=== PATIENT | female | born 1950 | race Caucasian/White ===

== ENCOUNTER → 2016-12-21 | Outpatient (CLI) | payer MEDICARE ==
[~2016-12-21] MED LIST: ALIG4CAP PO; BREO1INH INH; CALC1TAB21 PO; CLAR10CA3 PO; CRES10TA32 PO; E-Z-GAS II EFFERVESCENT PACKET (SODIUM BICARB./CITRIC ACID/SIMETHICONE) As Ordered ONE; E-Z-HD 98% w/w 340GM SUSP BTL As Ordered ONE; E-Z-PAQUE 96% w/w SUSP 176GM BTL As Ordered ONE; LEVO50TA45 PO; OMEGCAP9 PO; OMEP20CA3 PO; PREV1CAP PO; PROAAER10 INH; SING10TA32 PO; VITA200038 PO; VITA400C97 PO; VITA500C24 PO
--- NOTE | 2016-12-21 19:25 | REP ---
Esophagram The procedure was performed under the direct supervision of Dr. Chun. The images were reviewed with Dr. Chun. A single view PA chest x-ray is submitted as a psych nurse film. The superior mediastinal structures are midline. The heart size is within normal limits. The lungs are clear. Liquid barium and gas producing granules were given in the erect position as well as liquid barium in the prone oblique positions in order to perform a double contrast esophagram examination. The oral and pharyngeal stages of deglutition are unremarkable. Esophageal transport is prompt and efficient and there is no esophagitis, stricture or mucosal ring. There is a sliding type hiatal hernia present. There is gastroesophageal reflux demonstrated to above the level of the roberto. Impression: There is a sliding type hiatal hernia present. There is gastroesophageal reflux demonstrated to above the level of the roberto. 44 seconds of fluoro time was utilized for this procedure. Reviewed by KEVIN Uribe 12/21/2016 05:24 PSigned by Sachin Chun MD 12/21/2016 07:15 P
== END ==
LOC: M RAD 10:48
PROVIDERS: ATTEND Internal Medicine Gastroenterology
DX: K44.9 Diaphragmatic hernia without obstruction or gangrene (principal); K21.9 Gastro-esophageal reflux disease without esophagitis

== ENCOUNTER 2017-08-23 05:48 | Day surgery (SDC) | payer MEDICARE ==
[2017-08-23] MEDS ORDERED: LIDOCAINE 1% MDV 20ML VIAL SQ (06:00)
[2017-08-23] MEDS: LR 1,000 ML IV (06:45)
[2017-08-23] MEDS: dexameTHASONE 4 MG/ML 1ML VIAL (J1100) As Ordered (07:36)
[2017-08-23] MEDS: LIDOCAINE 2% MDV 20 ML VIAL As Ordered (07:36)
[2017-08-23] MEDS: BUPIVACAINE HCL 0.5% 30 ML VIAL As Ordered (07:36)
[2017-08-23] MEDS ORDERED: PROPOFOL 200 MG/20 ML VIAL As Ordered (07:38)
[2017-08-23] MEDS ORDERED: fentaNYL 100 MCG/2 ML INJECTION (J3010) As Ordered (07:38)
[2017-08-23] MEDS ORDERED: ONDANSETRON 4MG/2ML VIAL (J2405) As Ordered (07:38)
[2017-08-23] MEDS ORDERED: LIDOCAINE 2% INJ 100 MG/5 ML SDV (FOR ANES.) As Ordered (07:38)
[2017-08-23] MEDS ORDERED: MIDAZOLAM INJ 2 MG/2 ML VIAL (J2250) As Ordered (07:38)
[2017-08-23] MEDS: BACITRACIN PWD 50,000 UNITS VIAL As Ordered (07:41)
[2017-08-23] MEDS: NEOSPORIN GU IRRIG 20 ML VIAL As Ordered (07:41)
[2017-08-23] MEDS ORDERED: ePHEDrine SULFATE 25 MG/5 ML(5MG/ML) SYRINGE As Ordered (07:55)
== END 2017-08-23 09:40 | disposition home or self-care (01) ==
LOC: M SDC 05:48
DX: G57.62 Lesion of plantar nerve, left lower limb (principal); E03.9 Hypothyroidism, unspecified; K21.9 Gastro-esophageal reflux disease without esophagitis; J45.909 Unspecified asthma, uncomplicated; Z79.899 Other long term (current) drug therapy; Z88.0 Allergy status to penicillin; Z88.2 Allergy status to sulfonamides
CPT/HCPCS: 28080

== ENCOUNTER 2019-05-21 08:55 | Day surgery (SDC) | payer MEDICARE ==
[~2019-05-21] VITALS: Ht 160 cm; Wt 56.7 kg
[~2019-05-21 08:55] MED LIST changes: +CALC600T66 PO; +CRES10TA PO; -CRES10TA32 PO; -E-Z-GAS II EFFERVESCENT PACKET (SODIUM BICARB./CITRIC ACID/SIMETHICONE) As Ordered ONE; -E-Z-HD 98% w/w 340GM SUSP BTL As Ordered ONE; -E-Z-PAQUE 96% w/w SUSP 176GM BTL As Ordered ONE; +HAIR1CHW PO; +NS 1,000 ML IV ONE; +OMEP1CAP73 PO; -OMEP20CA3 PO; +PROBCAP14 PO; +PROBCAP4 PO; +TUMETAB PO; +VITA500079 PO
[2019-05-21] MEDS ORDERED: propofoL 200 MG/20 ML VIAL As Ordered ONE (09:22)
[2019-05-21] MEDS ORDERED: LIDOCAINE 2% INJ 100 MG/5 ML SDV (FOR ANES.) As Ordered ONE (10:10)
--- NOTE | 2019-05-21 11:17 | ROOR ---
Patient Name: Elsa Espinoza Procedure Date: 05/21/2019 10:58 AM Date of : 1950 Age: 68 Room: [facility] Gender: Female Note Status: Finalized Procedure: Colonoscopy Indications: Abnormal CT of the GI tract Providers: Husam OLIVER MD Referring MD: Gregoria YODER MD Requesting Provider: Medicines: Monitored Anesthesia Care Complications: No immediate complications. Procedure: Pre-Anesthesia Assessment: - The heart rate, respiratory rate, oxygen saturations, blood pressure, adequacy of pulmonary ventilation, and response to care were monitored throughout the procedure. The Colonoscope was introduced through the anus and advanced to 5 cm into the ileum. The colonoscopy was performed without difficulty. The patient tolerated the procedure well. The quality of the bowel preparation was good. Findings: The perianal and digital rectal examinations were normal. Multiple small and large-mouthed diverticula were found in the sigmoid colon. There was evidence of diverticular spasm. A diminutive polyp was found in the hepatic flexure. The polyp was sessile. The polyp was removed with a jumbo cold forceps. Resection and retrieval were complete. Small Internal Hemorrhoids. The exam was otherwise without abnormality on direct and retroflexion views. Impression: - Moderate diverticulosis in the sigmoid colon. There was evidence of diverticular spasm. - One diminutive polyp at the hepatic flexure, removed with a jumbo cold forceps. Resected and retrieved. - Small Internal Hemorrhoids. - The examination was otherwise normal on direct and retroflexion views. Recommendation: - Repeat colonoscopy in 5 years for surveillance. - Use fiber, for example Citrucel, Fibercon, Konsyl or Metamucil. - Return to referring physician as previously scheduled. Husam Oliver MD Husam OLIVER MD 05/21/2019 11:17:04 AM Electronically signed by Husam OLIVER MD Number of Addenda: 0 Note Initiated On: 05/21/2019 10:58 AM Estimated Blood Loss: Estimated blood loss: none.
[2019-05-21 11:40] VITALS: BP 142/61
== END 2019-05-21 11:50 | disposition home or self-care (01) ==
LOC: M OPP 08:55
PROVIDERS: ATTEND Internal Medicine Gastroenterology
DX: D12.3 Benign neoplasm of transverse colon (principal); K57.30 Diverticulosis of large intestine without perforation or abscess without bleeding; K64.8 Other hemorrhoids; Z79.899 Other long term (current) drug therapy; Z88.0 Allergy status to penicillin; Z88.1 Allergy status to other antibiotic agents; Z88.2 Allergy status to sulfonamides

== ENCOUNTER → 2021-06-02 | Outpatient (CLI) | payer MEDICARE ==
[~2021-06-02] MED LIST changes: -NS 1,000 ML IV ONE
[2021-06-02 09:21] LABS: BLOOD UREA NITROGEN 17 MG/DL (7-18); CREATININE FOR GFR 0.91 MG/DL (0.55-1.30); GLOMERULAR FILTRATION RATE > 60.0 (>39)
== END ==
LOC: M LAB 08:31
PROVIDERS: ATTEND Ophthalmology
DX: C69.32 Malignant neoplasm of left choroid (principal)

== ENCOUNTER → 2021-06-06 | Outpatient (CLI) | payer MEDICARE ==
[~2021-06-06] MED LIST changes: +PROHANCE 279.3MG/ML 15ML VIAL As Ordered ONE
== END ==
LOC: M RAD 12:56
PROVIDERS: ATTEND Ophthalmology
DX: C69.32 Malignant neoplasm of left choroid (principal)
CPT/HCPCS: 74183; A9576

== ENCOUNTER → 2021-11-30 | Outpatient (CLI) | payer MEDICARE ==
[~2021-11-30] MED LIST changes: -PROHANCE 279.3MG/ML 15ML VIAL As Ordered ONE
[2021-11-30 09:24] LABS: BLOOD UREA NITROGEN 14 MG/DL (7-18); CREATININE FOR GFR 0.95 MG/DL (0.55-1.30); GLOMERULAR FILTRATION RATE > 60.0 (>39)
== END ==
LOC: M LAB 08:16
PROVIDERS: ATTEND Ophthalmology
DX: C69.32 Malignant neoplasm of left choroid (principal)

== ENCOUNTER → 2021-12-06 | Outpatient (CLI) | payer MEDICARE ==
[~2021-12-06] MED LIST changes: +PROHANCE 279.3MG/ML 15ML VIAL ONE
== END ==
LOC: M PLAIMG 07:28
PROVIDERS: ATTEND Ophthalmology
DX: C69.32 Malignant neoplasm of left choroid (principal)
CPT/HCPCS: 74183; A9576

== ENCOUNTER → 2022-05-16 | Outpatient (CLI) | payer MEDICARE ==
[~2022-05-16] MED LIST changes: +EZET10TA21 PO; +GABA-282 PO; +MONT-5 PO; -PROHANCE 279.3MG/ML 15ML VIAL ONE; +REPA140I2 SC; -SING10TA32 PO
== END ==
LOC: M LABSMTC 11:18
PROVIDERS: ATTEND Anesthesiology
DX: Z01.818 Encounter for other preprocedural examination (principal)

== ENCOUNTER 2022-05-21 09:46 | Day surgery (SDC) | payer MEDICARE ==
[~2022-05-21] VITALS: Ht 160 cm; Wt 62.1 kg
[~2022-05-21 09:46] MED LIST changes: +BSS IRRIG/VANCO(10MG)/TOBRA(5MG)/EPINEPH(1:1000-0.5CC)500ML BAG-ORONLY IR ONE; +CYCLOPENTOLATE 1% OPHTH SOLN 2ML BTL OS SCH; +LIDOCAINE 1% SDV 5ML VIAL As Ordered ONE; +LIDOCAINE 3.5 % 1ML OPHTH TOPICAL GEL OU ONE; +OFLOXACIN 0.3 % (OCUFLOX) OPTH SOL 5ML OS ONE; +PHENYLEPHRINE 10% OPHTH SOL 5ML OS PRN; +PHENYLEPHRINE 2.5% OPHTH SOL 2ML OS SCH; +TROPICAMIDE 1% OPHTH SOLN 15ML OS SCH
[2022-05-21] MEDS ORDERED: fentaNYL 100 MCG/2 ML INJECTION As Ordered ONE (11:28)
[2022-05-21] MEDS ORDERED: MIDAZOLAM INJ 2MG/2ML VIAL As Ordered ONE (11:28)
[2022-05-21 11:36] VITALS: BP 138/78
== END 2022-05-21 11:55 | disposition home or self-care (01) ==
LOC: M SDC 09:46
PROVIDERS: ATTEND Ophthalmology
DX: H25.12 Age-related nuclear cataract, left eye (principal); E78.5 Hyperlipidemia, unspecified; E03.9 Hypothyroidism, unspecified; J45.909 Unspecified asthma, uncomplicated; Z90.89 Acquired absence of other organs; Z90.710 Acquired absence of both cervix and uterus; Z88.1 Allergy status to other antibiotic agents; Z88.0 Allergy status to penicillin; Z88.2 Allergy status to sulfonamides; Z79.899 Other long term (current) drug therapy; Z92.3 Personal history of irradiation
CPT/HCPCS: 66984; J2250; J3010; V2632

== ENCOUNTER → 2022-06-01 | Outpatient (CLI) | payer MEDICARE ==
[~2022-06-01] MED LIST changes: -BSS IRRIG/VANCO(10MG)/TOBRA(5MG)/EPINEPH(1:1000-0.5CC)500ML BAG-ORONLY IR ONE; -CYCLOPENTOLATE 1% OPHTH SOLN 2ML BTL OS SCH; -LIDOCAINE 1% SDV 5ML VIAL As Ordered ONE; -LIDOCAINE 3.5 % 1ML OPHTH TOPICAL GEL OU ONE; -OFLOXACIN 0.3 % (OCUFLOX) OPTH SOL 5ML OS ONE; -PHENYLEPHRINE 10% OPHTH SOL 5ML OS PRN; -PHENYLEPHRINE 2.5% OPHTH SOL 2ML OS SCH; -TROPICAMIDE 1% OPHTH SOLN 15ML OS SCH
[2022-06-01 08:28] LABS: CREATININE FOR GFR 1.03 MG/DL (0.55-1.30); GLOMERULAR FILTRATION RATE 55.9 (>39)
== END ==
LOC: M LAB 07:17
PROVIDERS: ATTEND Ophthalmology
DX: C69.32 Malignant neoplasm of left choroid (principal)

== ENCOUNTER 2022-06-04 12:05 | Day surgery (SDC) | payer MEDICARE ==
[~2022-06-04] VITALS: Ht 160 cm; Wt 62.1 kg
[~2022-06-04 12:05] MED LIST changes: +BSS IRRIG/VANCO(10MG)/TOBRA(5MG)/EPINEPH(1:1000-0.5CC)500ML BAG-ORONLY IR ONE; +CYCLOPENTOLATE 1% OPHTH SOLN 2ML BTL OD SCH; +LIDOCAINE 1% SDV 5ML VIAL As Ordered ONE; +LIDOCAINE 3.5 % 1ML OPHTH TOPICAL GEL OU ONE; +MIDAZOLAM INJ 2MG/2ML VIAL As Ordered ONE; +OFLOXACIN 0.3 % (OCUFLOX) OPTH SOL 5ML OD ONE; +PHENYLEPHRINE 10% OPHTH SOL 5ML OD PRN; +PHENYLEPHRINE 2.5% OPHTH SOL 2ML OD SCH; +TROPICAMIDE 1% OPHTH SOLN 15ML OD SCH; +fentaNYL 100 MCG/2 ML INJECTION As Ordered ONE
[2022-06-04 13:14] VITALS: BP 158/69
== END 2022-06-04 13:30 | disposition home or self-care (01) ==
LOC: M SDC 12:05
PROVIDERS: ATTEND Ophthalmology
DX: H25.11 Age-related nuclear cataract, right eye (principal); E78.5 Hyperlipidemia, unspecified; E03.9 Hypothyroidism, unspecified; Z90.89 Acquired absence of other organs; Z90.710 Acquired absence of both cervix and uterus; Z88.0 Allergy status to penicillin; Z88.1 Allergy status to other antibiotic agents; Z88.2 Allergy status to sulfonamides; Z79.899 Other long term (current) drug therapy; Z92.3 Personal history of irradiation
CPT/HCPCS: 66984; 87635; J2250; J3010; V2632

== ENCOUNTER → 2022-06-07 | Outpatient (CLI) | payer MEDICARE ==
[~2022-06-07] MED LIST changes: -BSS IRRIG/VANCO(10MG)/TOBRA(5MG)/EPINEPH(1:1000-0.5CC)500ML BAG-ORONLY IR ONE; -CYCLOPENTOLATE 1% OPHTH SOLN 2ML BTL OD SCH; -LIDOCAINE 1% SDV 5ML VIAL As Ordered ONE; -LIDOCAINE 3.5 % 1ML OPHTH TOPICAL GEL OU ONE; -MIDAZOLAM INJ 2MG/2ML VIAL As Ordered ONE; -OFLOXACIN 0.3 % (OCUFLOX) OPTH SOL 5ML OD ONE; -PHENYLEPHRINE 10% OPHTH SOL 5ML OD PRN; -PHENYLEPHRINE 2.5% OPHTH SOL 2ML OD SCH; +PROHANCE 279.3MG/ML 5ML VIAL ONE; -TROPICAMIDE 1% OPHTH SOLN 15ML OD SCH; -fentaNYL 100 MCG/2 ML INJECTION As Ordered ONE
== END ==
LOC: M PLAIMG 07:47
PROVIDERS: ATTEND Ophthalmology
DX: C69.32 Malignant neoplasm of left choroid (principal)
CPT/HCPCS: 74183; A9576

== ENCOUNTER → 2022-12-26 | Outpatient (CLI) | payer MEDICARE ==
[~2022-12-26] MED LIST changes: +PROHANCE 279.3MG/ML 15ML VIAL ONE; -PROHANCE 279.3MG/ML 5ML VIAL ONE
== END ==
LOC: M PLAIMG 10:46
PROVIDERS: ATTEND Ophthalmology
DX: C69.32 Malignant neoplasm of left choroid (principal)
CPT/HCPCS: 74183; A9576

== ENCOUNTER → 2023-07-17 | Outpatient (CLI) | payer MEDICARE ==
[~2023-07-17] MED LIST changes: -PROHANCE 279.3MG/ML 15ML VIAL ONE; +PROHANCE 279.3MG/ML 5ML VIAL ONE
== END ==
LOC: M PLAIMG 07:07
PROVIDERS: ATTEND Ophthalmology
DX: C69.32 Malignant neoplasm of left choroid (principal)
CPT/HCPCS: 74183; A9576

== ENCOUNTER → 2023-11-14 | Outpatient (CLI) | payer MEDICARE ==
[~2023-11-14] MED LIST changes: -PROHANCE 279.3MG/ML 5ML VIAL ONE
== END ==
LOC: M RAD 11:31
PROVIDERS: ATTEND Internal Medicine
DX: R10.13 Epigastric pain (principal)
CPT/HCPCS: 78227; A9537

== ENCOUNTER → 2024-01-24 | Outpatient (CLI) | payer MEDICARE ==
[~2024-01-24] MED LIST changes: +GABA-1172 PO; -GABA-282 PO; +PROHANCE 279.3MG/ML 5ML VIAL ONE
== END ==
LOC: M PLAIMG 08:56
PROVIDERS: ATTEND Ophthalmology
DX: C69.32 Malignant neoplasm of left choroid (principal)
CPT/HCPCS: 74183; A9576

== ENCOUNTER → 2024-07-27 | Outpatient (CLI) | payer MEDICARE ==
[~2024-07-27] MED LIST changes: -ALIG4CAP PO; +ALIG4CAP3 PO; +GADOXETATE DISODIUM 2.5MMOL/10ML VIAL ONE; -PROHANCE 279.3MG/ML 5ML VIAL ONE
== END ==
LOC: M PLAIMG 07:52
PROVIDERS: ATTEND Ophthalmology
DX: C69 Malignant neoplasm of eye and adnexa (principal)
CPT/HCPCS: 74183; A9581

== ENCOUNTER 2024-09-17 06:33 | Day surgery (SDC) | payer MEDICARE ==
[~2024-09-17] VITALS: Ht 160 cm; Wt 55.3 kg
[~2024-09-17 06:33] MED LIST changes: +CALCCAP4 PO; +CVS-161 PO; +GABA-284 PO; -GADOXETATE DISODIUM 2.5MMOL/10ML VIAL ONE; +MAGN200T PO; +PROA1AER2 IN; +VITA100093 PO
[2024-09-17] MEDS ORDERED: LIDOCAINE 2% 100 MG/5 ML SDV (FOR ANES.) As Ordered ONE (07:28)
[2024-09-17 07:50] VITALS: TEMP 97.8
[2024-09-17 08:05] VITALS: BP 118/56; O2SAT 95
== END 2024-09-17 08:13 | disposition home or self-care (01) ==
LOC: M OPP 06:33
PROVIDERS: ATTEND Internal Medicine Gastroenterology
DX: K63.5 Polyp of colon (principal); K57.30 Diverticulosis of large intestine without perforation or abscess without bleeding; K64.8 Other hemorrhoids; Z80.0 Family history of malignant neoplasm of digestive organs; Z86.0100 Personal history of colon polyps, unspecified; Z88.0 Allergy status to penicillin; Z88.1 Allergy status to other antibiotic agents; Z88.2 Allergy status to sulfonamides; Z79.899 Other long term (current) drug therapy; J45.909 Unspecified asthma, uncomplicated; Z87.891 Personal history of nicotine dependence